=== PATIENT | male | born 1965 | race Asian ===

== ENCOUNTER 2024-07-04 22:23 | Inpatient (IN) | payer OTHER ==
[~2024-07-04] VITALS: Ht 162.6 cm; Wt 82.2 kg
[2024-07-04 23:50] LABS: CARBON DIOXIDE 24 mEq/L (21-32); CHLORIDE 103 mEq/L (98-107); POTASSIUM 3.9 mEq/L (3.5-5.1); SODIUM 139 mEq/L (136-145)
[2024-07-04 23:51] LABS: CALCIUM 9.6 mg/dL (8.7-10.4)
[2024-07-04 23:54] LABS: BASOPHILS % 0.4 % (0.0-2.0); EOSINOPHILS % 2.1 % (0.0-5.0); HEMATOCRIT. 41.9 % (42.0-52.0); HEMOGLOBIN. 14.2 g/dL (14.0-18.0); LYMPHOCYTES % 35.6 % (20.0-50.0); MEAN CORPUSCULAR HEMOGLOBIN 31.8 pg (28.0-32.0); MEAN CORPUSCULAR HGB CONC 33.8 g/dL (31.0-37.0); MEAN CORPUSCULAR VOLUME 93.9 fL (80.0-94.0); MEAN PLATELET VOLUME 10.5 fl (7.4-10.4); NEUTROPHILS % 52.9 % (40.0-76.0); PLATELET 122 x1000/uL (130-400); RED BLOOD CELL COUNT 4.47 mill/uL (4.7-6.1); RED CELL DISTRIBUTION WIDTH 13.2 % (11.6-14.6); WHITE BLOOD COUNT 4.8 x1000/uL (4.5-11.0)
[2024-07-04 23:55] LABS: CREATININE 0.9 mg/dL (0.6-1.3)
[2024-07-04 23:56] LABS: GLUCOSE 145 mg/dL (70-105); TROPONIN I HIGH SENSITIVITY 32 ng/L (3.0-53); UREA NITROGEN BLOOD 14 mg/dL (9-23)
[2024-07-05] MEDS: NITROGLYCERIN OINT 1GM/INCH UDPKT TD ONE (00:20)
[2024-07-05 01:54] LABS: TROPONIN I HIGH SENSITIVITY 29 ng/L (3.0-53)
[2024-07-05 02:51] LABS: TROPONIN I HIGH SENSITIVITY 27 ng/L (3.0-53)
[2024-07-05] MEDS: IOHEXOL-350 100 ML BOTTLE ONE (03:14)
[2024-07-05] MEDS: ENOXAPARIN 80MG/0.8ML SYR SUBCUT NR (03:19)
[2024-07-05] MEDS ORDERED: IPRATROPIUM/ALBUTEROL 0.5-3(2.5)MG/3ML NEB HHN PRN (07:00)
[2024-07-05] MEDS ORDERED: ACETAMINOPHEN 325MG TABLET PO PRN ×2 (07:00)
[2024-07-05] MEDS ORDERED: ONDANSETRON HCL 4MG/2ML INJ IV PRN (07:00)
[2024-07-05] MEDS ORDERED: CLONIDINE 0.1MG TABLET PO PRN (07:00)
[2024-07-05] MEDS ORDERED: DOCUSATE SODIUM 100MG CAPSULE PO PRN (07:00)
[2024-07-05] MEDS: CLOPIDOGREL 75MG TABLET PO SCH (11:37)
[2024-07-05] MEDS: ASPIRIN 81MG TABLET PO SCH (11:37)
[2024-07-05 12:45] VITALS: BP 126/75; PULSE 57; RESP 17; TEMP 36.4; O2SAT 100
[2024-07-05 13:00] VITALS: BP 126/75; PULSE 57; RESP 17; TEMP 36.5
[2024-07-05] MEDS ORDERED: ATOR-2 MT (15:34)
[2024-07-05] MEDS ORDERED: ASPI-1497 MT (15:34)
[2024-07-05] MEDS ORDERED: LOSA25TA26 MT (15:34)
[2024-07-05] MEDS ORDERED: CLOP-31 PO (15:34)
[2024-07-05] MEDS ORDERED: CARV3.1242 MT (15:34)
[2024-07-05 16:00] VITALS: BP 129/81; PULSE 60; RESP 18; TEMP 36.1; O2SAT 100
[2024-07-05 17:32] LABS: *AMPHETAMINES SCREEN URINE NEGATIVE (NEGATIVE); *BARBITURATES SCREEN URINE NEGATIVE (NEGATIVE); *BENZODIAZEPINES SCREEN URINE NEGATIVE (NEGATIVE); *COCAINE SCREEN URINE NEGATIVE (NEGATIVE)
[2024-07-05 17:33] LABS: CANNABINOID URINE SCREEN NEGATIVE (NEGATIVE); ECSTASY MDMA SCREEN URINE NEGATIVE (NEGATIVE); METHADONE URINE SCREEN NEGATIVE (NEGATIVE); OPIATES URINE SCREEN NEGATIVE (NEGATIVE); PHENCYCLIDINE URINE SCREEN NEGATIVE (NEGATIVE)
[2024-07-05] MEDS: LOSARTAN 25 MG TABLET PO SCH (17:54)
[2024-07-05 20:00] VITALS: BP 140/83; PULSE 59; RESP 18; TEMP 36.8; O2SAT 99
[2024-07-05] MEDS: CARVEDILOL 3.125 MG TABLET PO SCH (20:38)
[2024-07-05] MEDS: ATORVASTATIN CALCIUM 40MG TABLET PO SCH (20:39)
[2024-07-05] MEDS ORDERED: MEDICATION NOT ON FORMULARY EA (Atorvastatin Calcium 1 TAB) MT SCH (21:00)
[2024-07-05 22:33] VITALS: BP 140/83; PULSE 59; TEMP 98.2; O2SAT 99
== END 2024-07-05 22:20 | disposition short-term general hospital (02) | DRG 313 ==
LOC: ER 22:23 → 6WST 07-05 01:39
PROVIDERS: ADMIT Family Medicine Adult Medicine; ATTEND Family Medicine Adult Medicine
DX: R07.89 Other chest pain (principal); I25.10 Atherosclerotic heart disease of native coronary artery without angina pectoris; K74.60 Unspecified cirrhosis of liver; I10 Essential (primary) hypertension; Z95.5 Presence of coronary angioplasty implant and graft; Z82.49 Family history of ischemic heart disease and other diseases of the circulatory system
CPT/HCPCS: 36415; 71045; 71275; 80048; 80305; 83880; 84484; 85025; 85379; 93005; 99285; J1650; Q9967